=== PATIENT | female | born 1945 | race Caucasian/White ===

== ENCOUNTER 2020-04-30 00:51 | Observation (INO) | payer OTHER ==
[~2020-04-30] VITALS: Ht 142.2 cm; Wt 77.6 kg
[2020-04-30 00:58] VITALS: BP 141/79
[2020-04-30] MEDS ORDERED: CIPRO500 M1 PO (01:15)
[2020-04-30] MEDS ORDERED: DIAZEPAM2 MG PO (01:15)
[2020-04-30] MEDS ORDERED: CLIMARA1 EAC3 PO (01:16)
[2020-04-30] MEDS ORDERED: LEVSIN0.5 MG/1 M PO (01:17)
[2020-04-30] MEDS ORDERED: CARAFATE 1 GM TA1 GM PO (01:17)
[2020-04-30 01:40] LABS: ABSOLUTE EOSINOPHILS 0.1 thou/uL (0.0-0.7); ABSOLUTE MONOCYTES 0.6 thou/uL (0.0-1.2); ABSOLUTE NEUTROPHILS 5.3 thou/uL (1.6-8.1); BASOPHILS 0.4 %; EOSINOPHILS 0.8 %; HEMATOCRIT 46.1 % (37.0-47.0); LYMPHOCYTES 14.2 %; MCHC 32.6 g/dL (28.0-37.0); MONOCYTES 8.4 %; MPV 7.7 fl. (7.2-11.1); NUCLEATED RBCS 0 /100WBC; PLATELET COUNT* 270 thou/uL (150-400); POLYS 76.2 %; RBC 5.37 mil/uL (4.20-5.00); RDW-CV 13.5 % (10.5-14.5); WBC 6.9 thou/uL (4.0-11.0)
[2020-04-30 01:55] LABS: CALCIUM 9.2 mg/dL (8.5-10.1); CREATININE 0.8 mg/dL (0.6-1.3); POTASSIUM 3.9 mmol/L (3.5-5.1)
[2020-04-30 02:06] LABS: ALBUMIN 3.6 g/dL (3.4-5.0); TOTAL BILIRUBIN 0.5 mg/dL (<0.1-1.0)
[2020-04-30 03:57] LABS: PROTIME 10.7 Seconds (9.20-11.50)
[2020-04-30 04:02] LABS: URINE BILIRUBIN NEGATIVE (Negative); URINE BLOOD 1+ (Negative); URINE CLARITY CLEAR; URINE COLOR YELLOW; URINE GLUCOSE-RANDOM NEGATIVE (Negative); URINE KETONES NEGATIVE (Negative); URINE PROTEIN TRACE (Negative); URINE SPECIFIC GRAVITY 1.015 (1.005-1.030); URINE UROBILINOGEN 0.2 E.U./dl (0.2-1.0)
[2020-04-30 04:37] LABS: URINE LEUKOCYTES-REFLEX 3+ (Negative); URINE NITRITE-REFLEX POSITIVE (Negative)
[2020-04-30 04:39] LABS: BACTERIA-REFLEX >30 Many /HPF (None Seen); CASTS None Seen /LPF (None Seen); CRYSTALS None Seen /LPF (None Seen); MUCUS 4-6 Moderate strn/LPF (None Seen); SQUAMOUS 0-3 Few /LPF (0-3); TRANSITIONAL EPITHEL CELL 0-3 Few /LPF (None Seen); URINE WBC-REFLEX >25 Many /HPF (0-5); WBC CLUMPS Moderate (None Seen)
[2020-04-30 05:10] VITALS: BP 132/79
[2020-04-30 05:46] VITALS: BP 128/84
[2020-04-30 08:00] VITALS: BP 132/75
--- NOTE | 2020-04-30 09:06 | EKG ---
[place] [address] ELECTROCARDIOGRAM REPORT Name: MILES RIVERORICANDI Cespedes Room: [address]#: [id number] Admission: 04/30/20 Attend Phys: Esteban Tidwell, Discharge: Date of : 49 Date of Service: 04/30/20 0116 Report #: [id number] THIS REPORT FOR: //name// [facility] ED Test Date: 2020-04-30 Test Time: 01:16:28 Pat Name: JAYNE RIVERO Department: Room: [facility] Gender: F [place] Insulator: TB : 1945 Requested By: Sarahi Hitchcock Order Number: [id number] MD: Sina Dawn Measurements Intervals [place] Rate: 114 P: 69 ND: 171 QRS: 83 QRSD: 101 T: 16 QT: 331 QTc: 456 Interpretive Statements Sinus tachycardia Borderline right axis deviation Minimal ST elevation, lateral leads No previous ECG available for comparison Electronically Signed On 04-30-2020 9:06:02 URANIUM PROCESSING SUPERVISOR by Sina Dawn [email or web address] <ELECTRONICALLY SIGNED> By: Sina Dawn MD, FAC 04/30/20 0906 0116 0116 Sina Dawn MD, [facility] /EPI
--- NOTE | 2020-04-30 09:06 | EKG ---
[place] [address] ELECTROCARDIOGRAM REPORT Name: JOSEFAJAYNE Coy Room: [address]#: [id number] Admission: 04/30/20 Attend Phys: Esteban Tidwell, Discharge: Date of : 49 Date of Service: 04/30/20 0401 Report #: [id number] THIS REPORT FOR: //name// [facility] ED Test Date: 2020-04-30 Test Time: 04:01:41 Pat Name: JAYNE RIVERO Department: Room: [facility] Gender: F Etl Programmer: TB : 1945 Requested By: Sarahi Hitchcock Order Number: [id number] MD: Sina Dawn Measurements Intervals [place] Rate: 114 P: 67 W[place]: 169 QRS: 82 QRSD: 90 T: 31 QT: 328 QTc: 452 Interpretive Statements Sinus tachycardia Borderline right axis deviation Compared to ECG 04/30/2020 01:16:28 ST (T wave) deviation no longer present Electronically Signed On 04-30-2020 9:06:19 FLAKER OPERATOR by Sina Dawn [email or web address] <ELECTRONICALLY SIGNED> By: Sina Dawn MD, FACC 04/30/20905 0 0 Sina Dawn MD, FAC /EPI
[2020-04-30] MEDS ORDERED: CEFDINIR300 MG PO (10:18)
== END 2020-04-30 13:15 ==
LOC: M.ERS 00:51 → M.TBA-ER 03:25 → M.2W 03:25
PROVIDERS: Emergency Medicine; ADMIT Internal Medicine; ATTEND Internal Medicine
DX: G93.41 Metabolic encephalopathy (principal); N39.0 Urinary tract infection, site not specified; M79.7 Fibromyalgia; G90.50 Complex regional pain syndrome I, unspecified; Z79.899 Other long term (current) drug therapy; Z20.828 Contact with and (suspected) exposure to other viral communicable diseases